=== PATIENT | female | born 1945 | race Caucasian/White ===

== ENCOUNTER 2017-12-12 13:52 | Emergency (ER) | payer MEDICARE ==
[~2017-12-12 13:52] MED LIST: ALPR0.5T99 PO; ASPI81 PO; ATEN1TAB73 PO; CENTTAB9 PO; DIAZ5 PO; HYDR50TA15 OR; INSPRA PO; LEVA3NEB7 NEB; LIVA2TAB PO; MECL25CH PO; MONT10TA2 OR; PROT40TA PO; SILV400T TOP; SPIRCAP INH; VERA1CAP PO; VITA400C28 PO; XOPEAER4 INH; [UNRECOGNIZED DRUG - CODE]
[2017-12-12 13:57] VITALS: BP 171/78; PULSE 57; RESP 20; TEMP 98.5; O2SAT 95
--- NOTE | 2017-12-12 14:33 | PD ---
HPI Chief Complaint: Medical Clearance Time Seen by Provider: 14:06 Travel History International Travel<30 days: No Contact w/Intl Traveler<30days: No Traveled to known affect area: No History of Present Illness HPI This patient came to the ER because she was concerned she might need rabies vaccination. She noticed this morning that the trash she has set out was scattered by an animal. She picked up the trash with her bare hands and was worried there could be rabid raccoon saliva on the trash. She has no symptoms. Duration 4 hours PFSH Past Medical History Hx Anticoagulant Therapy: Yes (asprin) Asthma: Yes Diminished Hearing: No GERD: Yes Hypertension: Yes Respiratory: Yes (asthma) Immunizations Current: Yes Menopausal: Yes Past Surgical History Cholecystectomy: Yes (1988) Gynecologic Surgery: Yes Social History Alcohol Use: No Tobacco Use: No Substance Use: No Allergies-Medications (Allergen,Severity, Reaction): Coded Allergies: amoxicillin (Unverified Allergy, Severe, 03/17/17) iodine (Unverified Allergy, Severe, 03/17/17) penicillin G (Unverified Allergy, Severe, 03/17/17) potassium iodide (Unverified Allergy, Severe, 03/17/17) povidone-iodine (Unverified Allergy, Severe, 03/17/17) shellfish derived (Unverified Allergy, Severe, 03/17/17) sodium iodide (Unverified Allergy, Severe, 03/17/17) sodium iodide (Unverified Allergy, Severe, 03/17/17) digoxin (Unverified Allergy, Unknown, 03/17/17) Uncoded Allergies: STATINS (Allergy, Severe, 11/06/08) Reported Meds & Prescriptions Reported Meds & Active Scripts Active Meclizine Hcl (Meclizine HCl) 25 Mg Chw 50 Mg PO Q6H PRN Valium (Diazepam) 5 Mg Tab 5 Mg PO QID PRN Silvadene 400 Gm (Silver Sulfadiazine) 400 Applic/400 Gm Cr 400 Applic TOP BIDPRN 7 Days Reported Livalo (Pitavastatin) 2 Mg Tab 2 Mg PO DAILY Inspra 50 Mg Tab (Eplerenone) 50 Mg Tab 50 Mg .XX DAILY Hydralazine HCl 50 Mg Tab 50 Mg OR DAILY Vitamin D 400 Unit Tab 4,000 Unit PO DAILY Singulair (Montelukast Sodium) 10 Mg Tab 10 Mg OR DAILY Centrum (Multivitamins) Tab 1 Tab PO DAILY Spiriva Handihaler (Tiotropium Bowie) 18 Mcg Cap 1 Dose INH Xanax (Alprazolam) 0.5 Mg Tab 0.5 Mg PO NEEDED Xopenex Hfa (Levalbuterol) 15 Gm Aero 0 Puff INH PRN UNKNOWN DOSE Xopenex (Levalbuterol HCl) 1.25 Mg/3 Ml Neb 1.25 Mg NEB BID Protonix (Pantoprazole Sodium) 40 Mg Tabdr 40 Mg PO DAILY Aspirin 81 Mg Tab 81 Mg PO DAILY Tenormin (Atenolol) 25 Mg Tab 25 Mg PO DAILY [Inspra] 50 Mg PO DAILY Verelan Pm (Verapamil HCl) 100 Mg Cap 240 Mg PO HS UNKNOWN DOSE Review of Systems HENT: No: Headaches Cardiovascular: No: Chest Pain or Discomfort Respiratory: No: Cough Gastrointestinal: No: Nausea Physical Exam Narrative SKIN: Focused skin assessment reveals no rash or ulcers. Skin is warm and dry. Palpation shows no induration or nodules. Psych: Normal mood and affect. Normal insight and judgment. NECK: Symmetrical appearance, midline trachea. No mass or crepitus. Thyroid without enlargement, tenderness, or mass. Data Data Last Documented VS Vital Signs Date Time Temp Pulse Resp B/P (MAP) Pulse Ox O2 Delivery O2 Flow Rate FiO2 12/12/17 13:57 98.5 57 20 171/78 (109) 95 MDM Medical Decision Making Medical Screen Exam Complete: Yes Emergency Medical Condition: Yes Medical Record Reviewed: Yes Differential Diagnosis Rabies exposure, anxiety, abrasion Narrative Course I have reviewed the patient's electronic medical record. No indication for rabies vaccination here. Patient does not have any openings in the hands or feet. The patient was advised to follow up with their physician and return if they worsen. Diagnosis Primary Impression: Exposure to hazardous substance Sammy Benito MD December 12, 2017 14:33
== END 2017-12-12 15:13 | disposition home or self-care (01) ==
LOC: NEPD 13:52
DX: Z77.29 Contact with and (suspected) exposure to other hazardous substances (principal); J45.909 Unspecified asthma, uncomplicated; I10 Essential (primary) hypertension; Z79.01 Long term (current) use of anticoagulants
CPT/HCPCS: 99281